=== PATIENT | male | born 1970 | race Caucasian/White ===

== ENCOUNTER → 2023-04-25 13:35 | Outpatient (REF) | payer OTHER, SELFPAY | LOC: DHCBC MAIN 13:35 | PROVIDERS: ATTENDING PHYSICIAN Nurse Practitioner; FAMILY PHYSICIAN Physician Assistant | DX: I42.0 Dilated cardiomyopathy (principal) | CPT/HCPCS: 93306 ==

== ENCOUNTER → 2023-07-29 13:03 | Outpatient (REF) | payer OTHER, SELFPAY | LOC: HWRCS 13:03 | PROVIDERS: ATTENDING PHYSICIAN Internal Medicine Cardiovascular Disease; FAMILY PHYSICIAN Physician Assistant | DX: I50.20 Unspecified systolic (congestive) heart failure (principal); I42.8 Other cardiomyopathies; I25.10 Atherosclerotic heart disease of native coronary artery without angina pectoris | CPT/HCPCS: 93306 ==

== ENCOUNTER 2023-08-12 10:47 | Day surgery (SDC) | payer OTHER, SELFPAY ==
[2023-08-12] VITALS (9 sets, daily range): BP systolic 87–114; BP diastolic 55–71; BMI 22.8
[2023-08-12] MEDS: VANCOCIN 200 IV (12:05)
--- NOTE | 2023-08-12 15:35 | W.ICD.CONTRA ---
Post ICD/DIE CUTTER DIAMOND-D
-
History of MO?: No
LV Function
Left ventricular function study result?: Ejection Fraction </= 35%
ACEI/ARB/ARNI
Patient already on ACEI/ARB/ARNI: Yes
Beta-Guy
Patient already on Beta Guy: Yes
--- NOTE | 2023-08-12 16:45 | W.PN.UPDATE ---
Update Note
Progress Note Update
Pt seen post ICD implant. Left ACW w/aquacel and pressure dressing on top. Post EKG NSR 60s. Post CXR w/stable lead position, no pneumothorax. Activity limitations reviewed w/pt and . He is having considerable left shoulder pain, states it was
present before the procedure but now it's a little worse. Will order one percocet now and he will take tylenol at home thereafter. [facility]. Home today if tele/site remain stable.
[2023-08-12] MEDS: PERCOCET 5/325 1 TABLET PO (16:51)
--- NOTE | 2023-08-12 16:51 | ITS.CL.ICD ---
Acquisition Marketing Coordinator - ICD
Implantable Cardioverter Defibrillator
Procedure Report:
Date of Procedure: August 12, 2023.
Procedures: Single chamber transvenous ICD implantation.
Indication: Primary prevention ICD. Heart failure class II. The patient's life expectancy exceeds one year. The patient was on maximally tolerated guideline directed therapy for more than 3 months. Nonischemic cardiomyopathy.
Implanting physician: Mu Lindsay M.D.
Implants:
Pulse Generator: [employer]tronic; Model# EGIT2A0; Serial# [id number].
Ventricular Lead: Medtronic; Model# [id number]; Serial# [id number].
Technique: A time out was performed. A 10 mL upper extremity venogram demonstrated patent left cephalic, axillary, and subclavian veins. The procedure site was identified. The patient was anesthetized by the anesthesia service. Preoperative
vancomycin and aztreonam was administered. The patient was prepped and draped in the usual fashion. Local anesthetic was applied to the left prepectoral subcutaneous tissue. A 3 inch incision was made along the left deltopectoral groove. Dissection
was carried to the fascia. The left cephalic vein was easily isolated and proximal and distal control with 2-0 Vicryl suture. Using a micropuncture needle to access the cephalic vein under direct visualization a wire was advanced into the central
circulation. The lead was introduced with a hemostatic 9 Fr peel away introducer sheath. The ventricular lead was placed at the right ventricular apical septum. The ventricular lead was secured to the pectoralis muscle and fascia with two 0-silk
sutures. 8 volt pacing did not capture the diaphragm. A subcutaneous pocket was created with Bovie cautery. Hemostasis was excellent.The leads were appropriately attached to the device. The pocket was irrigated with antibiotic solution. The device
and leads were placed in the pocket. The generator was secured to the pectoralis muscle to prevent lateral migration of the device. The incision was closed in three layers with absorbable suture. Steri-strips and an Aquacel dressing were placed.
Estimated blood loss: less than 5 ml. There were no complications. Fluoroscopy: 0.9 minutes and DAP 0.528 GyCm2. The device was then interrogated after skin closure. Defibrillation threshold testing was not performed.
Device Testing:
RV lead: R: 9.5 mV; Threshold: 0.5 V @ 0.4 ms; Impedance: 779 ohms. HVB 79 ohms.
Final Programming: Tachy: VT/VF 188; Ge: VVI 40 bpm.
Conclusions: Uncomplicated single chamber transvenous ICD implant. The ICD system is MRI safe/conditional.
Recommendations: Routine post ICD care.
cc: Feliberto Amaya MD and Muna Judge MD.
== END 2023-08-12 17:00 | disposition home or self-care (01) ==
LOC: CATH 10:47
PROVIDERS: ATTENDING PHYSICIAN Internal Medicine Cardiovascular Disease; FAMILY PHYSICIAN Physician Assistant; OTHER PHYSICIAN Internal Medicine Cardiovascular Disease
DX: I50.20 Unspecified systolic (congestive) heart failure (principal); I42.8 Other cardiomyopathies; I25.10 Atherosclerotic heart disease of native coronary artery without angina pectoris; Z79.82 Long term (current) use of aspirin; R94.31 Abnormal electrocardiogram [ECG] [EKG]; Z88.0 Allergy status to penicillin
CPT/HCPCS: 33249; 71045; 93005; C1722; C1777; C1892; Q9967

== ENCOUNTER → 2024-06-14 10:27 | Outpatient (REF) | payer OTHER, SELFPAY | LOC: HWRCS 10:27 | PROVIDERS: ATTENDING PHYSICIAN Internal Medicine Cardiovascular Disease; FAMILY PHYSICIAN Physician Assistant | DX: I50.20 Unspecified systolic (congestive) heart failure (principal); I42.8 Other cardiomyopathies; I25.10 Atherosclerotic heart disease of native coronary artery without angina pectoris | CPT/HCPCS: 93306 ==